=== PATIENT | male | born 1950 | race Caucasian/White ===

== ENCOUNTER 2019-01-16 07:34 | Day surgery (SDC) | payer MEDICARE, OTHER, SELFPAY ==
[2019-01-16] VITALS (7 sets, daily range): BP systolic 98–146; BP diastolic 60–78; PULSE 12–71; RESP 12–96; TEMP 36.3–36.9; O2SAT 96–100; BMI 31.2
--- NOTE | 2019-01-16 | PATH_ITS ---
[facility] Accession Number: [id number] . 01 Material submitted: . PART A: gastrointestinal site - ANTRUM BODY PART B: esophagus - ESOPHAGUS PART C: esophagus, E-G Junction - PROXIMAL AND MID ESOPHAGUS . 02 Diagnosis: A. Stomach, Antrum, Body, Biopsies: Antral and body-type mucosa with no diagnostic abnormality. No evidence of Helicobacter on H/E stain. Negative for intestinal metaplasia. Negative for dysplasia and malignancy. . B. Esophagus, Biopsies: Squamocolumnar junctional mucosa with no diagnostic abnormality. Negative for intestinal metaplasia. Negative for dysplasia and malignancy. . C. Esophagus, Proximal and Mid, Biopsies: Squamous mucosa with increased intraepithelial eosinophils (up to 25 per high-power field). Please see comment. Negative for dysplasia and malignancy. MRV/01/18/2019 . 02 Comment: Part C: The finding of greater than 15 eosinophils per high-power field generally indicates a diagnosis of eosinophilic esophagitis, in the appropriate clinical and endoscopic setting. The differential diagnosis also includes drug reaction, gastroesophageal reflux, and food allergies. . 02 Electronically signed: . Minnie Jung MD, Pathologist NPI- [id number] . 01 Gross description: . Part A: ANTRUM BODY: Received in formalin are 3 fragment(s) of momin, soft tissue measuring 0.1 x 0.1 x 0.1 cm to 0.4 x 0.2 x 0.2 cm which is entirely submitted and submitted entirely in 1 cassette(s) Part B: ESOPHAGUS: Received in formalin are 2 fragment(s) of momin, soft tissue measuring 0.2 x 0.2 x 0.2 cm to 0.3 x 0.2 x 0.2 cm which is entirely submitted and submitted entirely in 1 cassette(s) Part C: PROXIMAL AND MID ESOPHAGUS: Received in formalin are 4 fragment(s) of momin, soft tissue measuring 0.1 x 0.1 x 0.1 cm to 0.4 x 0.2 x 0.2 cm which is entirely submitted and submitted entirely in 1 cassette(s) /DMC /D[facility] . 02 Pathologist provided ICD-10: K20.0 . 02 CPT . 563563, 016726, [id number] Performed at: 01 [facility] [address] [place] [address], [place], [place] [id number] MD Miah Lynn MD Phone: [phone] Performed at: 02 [facility] [address] [place], [place] [id number] MD Minnie Jung MD Phone: [phone]
--- NOTE | 2019-01-16 07:55 | PM.HP.1 ---
History of Present Illness Date Patient Seen: 01/16/19 Time Patient Seen: 08:00 Chief complaint: [id number] Narrative: Patient is a very pleasant 68-year-old male who presented for further evaluation of symptoms of acid reflux, trouble swallowing, personal history of colon polyps. Patient states he has had symptoms of acid reflux for many years he recently has started to describe difficulty swallowing at times solid foods. He has not had previous upper endoscopy. His last colonoscopy was in 2011, he does have a personal history of colon polyps. Per the patient he did not have polyps on his last exam. Patient History Medical History (Updated 01/16/19 @ 08:01 by Faith Solano DO) Colon polyp (Acute) Diabetes (Acute) GERD (gastroesophageal reflux disease) (Acute) Social History household members: spouse Meds Home Medications Medication Instructions Recorded Confirmed Type aspirin [Aspir-81] 81 mg PO DAILY 01/16/19 01/16/19 History atorvastatin 20 mg PO BEDTIME 01/16/19 01/16/19 History fenofibrate 160 mg PO DAILY 01/16/19 01/16/19 History metformin 850 mg PO BID 01/16/19 01/16/19 History omega 7-eyh-shn-fish oil [[place]-3 4 tab/day PO DAILY 01/16/19 01/16/19 History Fish Oil] tadalafil [Cialis] 5 mg PO DAILY 01/16/19 01/16/19 History Allergies Allergy/AdvReac Type Severity Reaction Status Date / Time amoxicillin Allergy Rash Verified 01/16/19 07:56 Review of Systems Review of Systems All systems reviewed & are unremarkable except as noted in HPI and below Exam Const General: healthy appearing and well developed [facility] Head: normocephalic and atraumatic Resp Effort & Inspection: normal respiratory effort and able to speak in complete sentences Auscultation: clear to auscultation bilaterally Cardio Rate: regular rate Rhythm: regular rhythm Heart Sounds: S1 normal and S2 normal GI Palpation: soft and no hepatosplenomegaly Auscultation: normal bowel sounds Objective ECG Impression: Assessment & Plan Assessment & Plan narrative: 1. GERD 2. Dysphagia 3. History of colon polyps Proceed with EGD and Colonoscopy Regarding the procedure(s), the risks and potential complications, benefits, and alternatives (including not doing the procedure) were discussed with the patient. The risks include but are not limited to bleeding, splenic injury, infection, perforation which may require surgical intervention, missed lesions, and adverse reactions to sedative medicines. After a question and answer period, the patient agreed to proceed with the procedure(s) and gives informed consent.
[2019-01-16] MEDS: SODIUM CHLORIDE 0.9% 1,000 ML 70 ML IV (08:10)
--- NOTE | 2019-01-16 08:19 | P.HP_ITS ---
History of Present Illness Date Patient Seen: 01/16/19 Time Patient Seen: 08:00 Chief complaint: [id number] Narrative: Patient is a very pleasant 68-year-old male who presented for further evaluation of symptoms of acid reflux, trouble swallowing, personal history of colon polyps. Patient states he has had symptoms of acid reflux for many years he recently has started to describe difficulty swallowing at times solid foods. He has not had previous upper endoscopy. His last colonoscopy was in 2011, he does have a personal history of colon polyps. Per the patient he did not have polyps on his last exam. Patient History Medical History (Updated 01/16/19 @ 08:01 by Faith Solano DO) Colon polyp (Acute) Diabetes (Acute) GERD (gastroesophageal reflux disease) (Acute) Social History household members: spouse Meds Home Medications Medication Instructions Recorded Confirmed Type aspirin [Aspir-81] 81 mg PO DAILY 01/16/19 01/16/19 History atorvastatin 20 mg PO BEDTIME 01/16/19 01/16/19 History fenofibrate 160 mg PO DAILY 01/16/19 01/16/19 History metformin 850 mg PO BID 01/16/19 01/16/19 History omega 6-ali-rpa-fish oil [[place]-3 4 tab/day PO DAILY 01/16/19 01/16/19 History Fish Oil] tadalafil [Cialis] 5 mg PO DAILY 01/16/19 01/16/19 History Allergies Allergy/AdvReac Type Severity Reaction Status Date / Time amoxicillin Allergy Rash Verified 01/16/19 07:56 Review of Systems Review of Systems All systems reviewed & are unremarkable except as noted in HPI and below Exam Const General: healthy appearing and well developed [facility] Head: normocephalic and atraumatic Resp Effort & Inspection: normal respiratory effort and able to speak in complete sentences Auscultation: clear to auscultation bilaterally Cardio Rate: regular rate Rhythm: regular rhythm Heart Sounds: S1 normal and S2 normal GI Palpation: soft and no hepatosplenomegaly Auscultation: normal bowel sounds Objective ECG Impression: Assessment & Plan Assessment & Plan narrative: 1. GERD 2. Dysphagia 3. History of colon polyps Proceed with EGD and Colonoscopy Regarding the procedure(s), the risks and potential complications, benefits, and alternatives (including not doing the procedure) were discussed with the patient. The risks include but are not limited to bleeding, splenic injury, infection, perforation which may require surgical intervention, missed lesions, and adverse reactions to sedative medicines. After a question and answer period, the patient agreed to proceed with the procedure(s) and gives informed consent.
--- NOTE | 2019-01-16 08:27 | SUR.OPER ---
GLASSES IN LABELED BAG TO PACU WITH PATIENT.
[2019-01-16] MEDS: MIDAZOLAM 5 MG/5 ML VIAL IV (08:52)
[2019-01-16] MEDS: fentaNYL 250 MCG/5 ML INJ IV (08:53)
--- NOTE | 2019-01-16 09:17 | PM.OP.ENDO ---
Operative Date/Time/Diagnoses Date of procedure: 01/16/19 Time of procedure: 08:28 Pre-op diagnosis: GERD Dysphagia History of colon polyps Procedure Notes Procedure in detail: Surgeon: Faith Solano DO Procedure: Esophagogastroduodenoscopy with biopsy and colonoscopy Preoperative diagnosis: 1. GERD 2. Dysphagia 3. History of colon polyps Postoperative diagnosis: 1. Reflux rule out Cao's 2. Rule out EOE 3. Gastritis rule out H pylori 4. Diverticulosis 5. Internal hemorrhoids Medications: Conscious sedation using 9 mg IV of Midazolam and 150 mcg IV of Fentanyl (total for both procedures) Preanesthesia Assessment An H and P was performed/updated and the Px?s ASA class is 3. The procedure was discussed in detail with the patient. The potential risks and complications including infection, bleeding, missed lesions, perforation, need for surgery in case of perforation, prolonged hospital stay, and were explained. A brief question and answer period was allotted and once all questions were answered, informed consent was obtained. The patient was brought back to the procedure room and placed on standard monitoring. The patient?s vital signs were monitored continuously throughout the entire procedure. Prior to starting, a timeout was performed to confirm the patient?s identity, allergies, medications, and procedure. Procedure in detail The patient was placed in left lateral decubitus position and a bite block was inserted. The tip of the upper endoscope was placed into the mouth and advanced without difficulty under direct visualization into the esophagus. Esophagus: Changes of possible EOE - ringed esophagus with longitudinal furrows - Biopsied. Esophagitis at 40 - reflux rule out Barretts - biopsied. Stomach: Gastritis in antrum with changes of erythema, patchy. Biopsies for H pylori. Normal stomach on retroflexion. Duodenum: No gross lesions noted throughout the 1st and 2nd portion of the duodenum. After the upper endoscopy, preparations were made for the colonoscopy. Once adequate sedation was obtained a BRADLEY was performed. The digital rectal examination did not reveal any palpable lesions. The tip of the colonoscope was placed in the anal canal and advanced without difficulty all the way to the cecum which was identified by the appendiceal orifice and the ileocecal valve. The patient tolerated the procedure fairly well and will be brought back to the recovery area to be discharged once criteria are met. The prep was judged to be good and adequate to identify polyps greater than 5 mm. The withdrawal time was 7min 2 sec. The total physician intraservice time was 48min. Complications There were no complications and estimated blood loss was minimal. Recommendations Resume previous diet Continue outpatient medications Recommend PPI such as omeprazole 40mg twice daily for 6 weeks. Follow-up pathology results Repeat colonoscopy for surveillance in 5 years due to history of colon polyps An emergency contact number was given to the patient for any complications related to the procedure
--- NOTE | 2019-01-16 09:27 | PM.DS.1 ---
History of Present Illness Chief complaint: [id number] Narrative: Patient is a very pleasant 68-year-old male who presented for further evaluation of symptoms of acid reflux, trouble swallowing, personal history of colon polyps. Patient states he has had symptoms of acid reflux for many years he recently has started to describe difficulty swallowing at times solid foods. He has not had previous upper endoscopy. His last colonoscopy was in 2011, he does have a personal history of colon polyps. Per the patient he did not have polyps on his last exam. Discharge Providers Discharge Date: 01/16/19 Primary care physician: Stacy Sheets MD Discharge provider: Faith Solano, Exam Vital Signs (past 8 hours): - 01/16/19 08:09 Temperature 97.8 F Pulse Rate 71 Respiratory Rate 16 Blood Pressure 146/78 H Pulse Oximetry 100 Oxygen Delivery Method Room Air Discharge Plan Discharge Med Rec/Prescriptions Prescriptions: No Action metformin 850 mg Tablet 850 mg PO BID RF: 0 [place]-3 Fish Oil 910-1,400 mg Capsule 4 tab/day PO DAILY RF: 0 atorvastatin 20 mg Tablet 20 mg PO BEDTIME RF: 0 tadalafil [Cialis] 5 mg Tablet 5 mg PO DAILY RF: 0 fenofibrate 160 mg Tablet 160 mg PO DAILY RF: 0 aspirin [Aspir-81] 81 mg Tablet,Delayed Release (Dr/Ec) 81 mg PO DAILY RF: 0 Follow up/Referrals: Stacy Sheets MD [Primary Care Provider] - Visit Report/Discharge Packet Stand Alone Forms: Colonoscopy Result: [facility], EGD Result: Medical Group Discharge Data Primary Care Provider: Stacy Sheets Attending Provider: Faith Solano
== END 2019-01-16 10:05 | disposition home or self-care (01) ==
PROVIDERS: PCP Internal Medicine; Visit Provider Student in an Organized Health Care Education/Training Program
PROC: 0DJ08ZZ Inspection of Upper Intestinal Tract, Via Natural or Artificial Opening Endoscopic (ICD-10-PCS; CPT 43235; principal; 2019-01-16 08:30)
PROC: 0DJD8ZZ Inspection of Lower Intestinal Tract, Via Natural or Artificial Opening Endoscopic (ICD-10-PCS; CPT 45378; 2019-01-16 08:30)
DX: Z86.010 Personal history of colon polyps (principal); K21.9 Gastro-esophageal reflux disease without esophagitis; K29.70 Gastritis, unspecified, without bleeding; K57.30 Diverticulosis of large intestine without perforation or abscess without bleeding; K64.8 Other hemorrhoids; E11.9 Type 2 diabetes mellitus without complications; Z79.84 Long term (current) use of oral hypoglycemic drugs; K20.0 Eosinophilic esophagitis
CPT/HCPCS: 43239; 45378; 88305; J2250; J3010

== ENCOUNTER → 2020-01-09 11:35 | Outpatient (ROUT) | payer MEDICARE, OTHER, SELFPAY ==
[2020-01-09 12:05] LABS: Alanine Aminotransferase 26 IU/L (<50); Albumin 4.6 g/dL (3.5-5.0); Albumin Globulin Ratio 1.6 (1.0-2.8); Alkaline Phosphatase 43 U/L (38-126); Aspartate Aminotransferase 43 IU/L (17-59); BUN Creatinine Ratio 28.7 (6-22); Bilirubin Total 0.5 mg/dL (0.2-1.3); Blood Urea Nitrogen 27 mg/dL (9-20); Calcium 10.2 mg/dL (8.4-10.2); Carbon Dioxide 26 mmol/L (22-32); Chloride 103 mmol/L (98-107); Cholesterol 151 mg/dL (140-199); Estimated Glomerular Filt Rate > 60.0 mL/min (>60); Globulin 2.8 g/dL (1.7-4.1); Glucose 128 mg/dL (80-110); HDL Cholesterol 31 mg/dL (40-60); HEMOLYSIS < 15 (0-50); LDL Cholesterol Calculated 98 mg/dL (<100); Potassium 4.4 mmol/L (3.4-5.1); Sodium 138 mmol/L (137-145); Total Protein 7.4 g/dL (6.3-8.2); Triglycerides 111 mg/dL (35-150)
[2020-01-09 12:07] LABS: Creatinine Urine Random 121.8 mg/dL
[2020-01-09 12:10] LABS: Hemoglobin A1C% w Est Avg Glu 6.3 % (4.0-6.0)
[2020-01-09 12:12] LABS: Microalbumi Creatinin Ratio Ur 47.6 ug/mg CR (<30); Microalbumin Urine Random 5.8 mg/dL (0-1.6)
[2020-01-10 07:36] LABS: PSA Free % 33.3 % (.); PSA, Total 0.3 ng/mL (0.0-4.0)
== END ==
PROVIDERS: PCP Internal Medicine; Visit Provider Internal Medicine
DX: Z12.5 Encounter for screening for malignant neoplasm of prostate (principal); E11.9 Type 2 diabetes mellitus without complications; E78.5 Hyperlipidemia, unspecified
CPT/HCPCS: 80053; 80061; 82043; 82570; 83036; 84153; 84154

== ENCOUNTER → 2020-02-26 13:04 | Outpatient (CLI) | payer MEDICARE, OTHER, SELFPAY ==
--- NOTE | 2020-02-26 14:23 | DIET.PN ---
DIABETES w/ Kidney Stones Nutrition Initial Assessment:? ASSESS:? Mr. Oliva is a 69 yom referred for type 2 diabetes with kidney stones. He reports long standing hx of diabetes which he has controlled for several years. He has had several kidney stones, 2 of which have required surgical intervention. His first was 4 years ago and most recent in September. He met with a urologist and has been following a very strict low oxalate diet since December. He and his present with several questions regarding concerns with these new dietary restrictions and maintaining good glucose control. He exercises daily and endorses drinking at least 60 oz of water each day. ? LABS: Per pt report:? A1c: 6.3 Oxalate stone ? MEDS:?? metformin 850 mg BID ? DIET: Per 24-hour recall:? B: Banana L: deli sandwich w/ potato chips D: chicken, vegetable starch Sn: hummus w/ crackers ? Weight: 197lb Height: 65in BMI: 32.78 ? Exercise:? walks 5 mi each morning NUTRITION DX 1. Altered Nutrition related labs related to impaired glucose metabolism, lack of previous exposure to accurate nutrition information as evidenced by pt report, dx of diabetes, kidney stones, previous diet high in refined carbohydrates.? INTERVENTION(s): 1. Discussed pathophysiology of diabetes. Reviewed A1c and its correlation to blood glucose numbers. 2. Discussed impact of nutrition/diet on blood sugar control.? 3. Reviewed carbohydrate counting and measuring carbohydrate content via serving sizes and reading nutrition labels.? Provided handouts.?? 4. Discussed the formation of oxalate stones and the importance of adequate hydration. 5. Provided outline of patient nutrient needs including protein, calcium, sodium and fluid goals. Provided list of low, med, and high oxalate foods as well of servings of animal vs plant based proteins. 6. Discussed importance of limiting/eliminating processed and pre-packaged foods to reduce sodium intake. Provided recommendations for substitutions and making sauces/dressing from home. 7. Stressed importance of meal timing and not going >4-5 hours between meals. 8. Discussed the effects of caffeine and alcohol on kidney function. 9. Assisted pt and in modifying staple household recipes to alleviate stress in usual food intake. MONITOR/EVALUATE: Anticipate good compliance.? Pt will call to schedule follow up.
== END ==
PROVIDERS: PCP Internal Medicine; Referring Provider Internal Medicine; Visit Provider Internal Medicine
DX: E11.9 Type 2 diabetes mellitus without complications (principal); E66.9 Obesity, unspecified; Z87.442 Personal history of urinary calculi; Z68.32 Body mass index [BMI] 32.0-32.9, adult; Z71.3 Dietary counseling and surveillance; Z79.84 Long term (current) use of oral hypoglycemic drugs
CPT/HCPCS: 97802

== ENCOUNTER → 2021-12-15 14:55 | Outpatient (CLI) | payer MEDICARE, OTHER, SELFPAY ==
[2021-12-15 17:56] LABS: Alanine Aminotransferase 28 IU/L (<50); Albumin 4.3 g/dL (3.5-5.0); Albumin Globulin Ratio 1.5 (1.0-2.8); Alkaline Phosphatase 74 U/L (38-126); Aspartate Aminotransferase 35 IU/L (17-59); BUN Creatinine Ratio 21.5 (6-22); Bilirubin Total 0.8 mg/dL (0.2-1.3); Blood Urea Nitrogen 14 mg/dL (9-20); Calcium 8.9 mg/dL (8.4-10.2); Carbon Dioxide 24 mmol/L (22-32); Chloride 103 mmol/L (98-107); Estimated Glomerular Filt Rate > 60 mL/min (>60); Globulin 2.8 g/dL (1.7-4.1); Glucose 103 mg/dL (80-110); HEMOLYSIS < 15 (0-50); Potassium 3.9 mmol/L (3.4-5.1); Sodium 139 mmol/L (137-145); Total Protein 7.1 g/dL (6.3-8.2)
[2021-12-16 06:18] LABS: Parathyroid Hormone Int 24 pg/mL (15-65)
== END ==
PROVIDERS: PCP Internal Medicine; Referring Provider Urology; Visit Provider Urology
DX: N20.0 Calculus of kidney (principal)
CPT/HCPCS: 36415; 80053; 83970; 84550

== ENCOUNTER → 2023-06-29 08:06 | Outpatient (CLI) | payer MEDICARE, OTHER, SELFPAY ==
--- NOTE | 2023-06-29 | DI.US.S_ITS ---
PROCEDURE: US RENAL COMPLETE INDICATIONS: NEPHROLITHIASIS TECHNIQUE: Real-time scanning was performed of the kidneys and bladder, with image documentation. COMPARISON: None. FINDINGS: Kidneys: Kidneys are normal in size. Right kidney measures 10.7 cm long; left kidney measures 11.4 cm long. Right renal cortical thickness is 1.3 cm; left renal cortical thickness is 1.7 cm. Renal cortical echotexture is normal. No hydronephrosis or nephrolithiasis. No suspicious solid mass lesions. Bladder: Pre-void bladder volume is 80 mL. Post-void residual is 9 mL. Pre-void images demonstrate no intraluminal masses or stones. On pre-void images, a unilateral left ureteral jet is noted with color Doppler interrogation. (Of note, ureteral jets may not be detectable in up to 25% of cases due to insufficient differences in specific gravity between ureteral and bladder urine). Miscellaneous: No free pelvic fluid. IMPRESSION: Normal size kidneys with no evidence of hydronephrosis. Dictated by: Tripp Loya M.D. on 06/29/2023 at 14:43 Approved by: Tripp Loya M.D. on 06/29/2023 at 14:46
== END ==
PROVIDERS: PCP Internal Medicine; Referring Provider Urology; Visit Provider Urology
DX: N20.0 Calculus of kidney (principal)
CPT/HCPCS: 76770